=== PATIENT | female | born 1975 | race Caucasian/White ===

== ENCOUNTER → 2017-06-01 | Outpatient (CLI) | payer OTHER ==
[~2017-06-01] VITALS: Ht 172.7 cm; Wt 76.2 kg
[~2017-06-01] MED LIST: NORE-68 PO; TRAZ50TA15 PO
[2017-06-01 09:41] VITALS: BP 132/75
--- NOTE | 2017-06-01 13:09 | RAD ---
Indication mass 2:00 position right breast. Note is made of recent imaging and the recommendation for biopsy of a well-defined mass in the right breast. Those images were reviewed. Preliminary ultrasound images were obtained and the known mass at the 2:00 position of the right breast was reproduced. [employer] ultrasound images were generated and saved. Image guided biopsy was discussed with the patient. The risks of infection and bleeding were outlined. Small possibility of pneumothorax was also discussed. The patient understood the risks associated with the procedure and wished to proceed. The skin was prepped and draped in the routine fashion. Local anesthesia was accomplished with 1% lidocaine. A 14-gauge coaxial biopsy system was utilized. Under ultrasound guidance 4 core samples were obtained. Following the biopsy a clip was deployed at the biopsy site. The patient tolerated the procedure unremarkably. Following the biopsy and the clip deployment the patient was transferred to a dedicated mammographic suite and conventional mammographic images were obtained. Note is made that the clip is appropriately positioned within the target mass. The biopsy site was dressed in routine fashion and the patient discharged with appropriate instructions. IMPRESSION: Successful ultrasound-guided biopsy mass right breast
--- NOTE | 2017-06-02 13:47 | PATHOLOGY ---
PATHOLOGY REPORT * * * * * * * * FINAL DIAGNOSIS: Breast tissue, right breast lesion needle biopsies: - Fibroadenoma. COMMENT: There is no evidence of malignancy. (JPM:mgr; 06/02/2017) REPORT ELECTRONICALLY SIGNED BY: Kb Chambers M.D. DATE/TIME: 06/02/2017 13:47 * * * * * * * * GROSS PATHOLOGY: Received in formalin labeled "Fabiola Rodarte, right breast nodule samples," are multiple needle cores of yellow-reddy fibrofatty tissue measuring 0.8 x 0.5 x 0.2 cm in aggregate dimensions. The tissue is submitted in its entirety in cassette A1. The cold ischemic time is 10 minutes. The total formalin fixation time is 11 hours in 20 minutes. (JPM; 06/01/17) INITIAL CPT CODE(S): A; 65634 Professional services performed by [facility] [place] [address] Technical services performed by [facility] at [address] [place] [address], [facility] [address] [address]. Laureen Cantu NP fax: SPECIMEN(S) RECEIVED: A.Right breast nodule samples CLINICAL HISTORY: Right breast lesion PATIENT: FABIOLA RODARTE /AGE: 907/11/1975 (Age: 41) PATIENT #: [id number] ALT CASE #: SPECIMEN COLLECTION DATE: 06/01/2017 SPECIMEN RECEIVED DATE: 06/01/2017 [facility] - [address] [place] [address] - PHONE: [phone] * * * END OF REPORT * * *
== END | disposition home or self-care (01) ==
LOC: US 09:24
PROVIDERS: ATTEND Nurse Practitioner Family
DX: N63 Unspecified lump in breast (principal)
CPT/HCPCS: 76942; C1713; G0206; 19081; 77065